=== PATIENT | male | born 1960 | race Caucasian/White ===

== ENCOUNTER 2023-02-12 00:09 | Day surgery (SDC) | payer OTHER, SELFPAY ==
[2023-02-05 15:15] VITALS: BMI 29.2
[2023-02-12 06:50] VITALS: BP 135/81; PULSE 81; RESP 16; TEMP 35.8; O2SAT 98
[2023-02-12] MEDS: LACTATED RINGERS 1,000 ML 150 ML IV CONT (06:59)
--- NOTE | 2023-02-12 07:13 | WPDANESEPPF ---
Anes - Initial Pre Proc Eval Procedure: Operation Date: 02/12/23 08:00 Proposed Procedures p Screening Colonoscopy - Bayron Hanks MD Date/Time: 02/12/23 07:13 Surgeon: Bayron Hanks MD Pre Op Diagnosis: neoplasm screening Patient Data Age: 62 Gender: M Height: 1.83 m Weight: 98.6 kg Last Vital Signs Temp 35.8 C L 02/12/23 06:50 Pulse 81 02/12/23 06:50 Resp 16 02/12/23 06:50 BP 135/81 02/12/23 06:50 Pulse Ox 98 02/12/23 06:50 O2 Del Method Room Air 02/12/23 06:50 Allergies Allergy/AdvReac Type Severity Reaction Status Date / Time No Known Allergies Allergy Verified 02/12/23 06:47 Home Medications Medication Instructions Recorded Confirmed Type pramipexole 1.5 mg tablet (Mirapex) 1.5 mg PO DAILY 02/05/23 02/12/23 History Patient hx anesthesia problems: none Family hx anesthesia problems: none Results Review: All pre-operative results and documents have been reviewed as part of the pre-operative evaluation. [facility] Past Medical History Medical History Calf pain History of colon polyps Joint pain Knee pain, left Family History Family History Father Hypertension Grandparent Family history of lung cancer Mother Family history of lung cancer, Onset Age: 68 Other No family history of cardiovascular disease No family history of diabetes mellitus No family history of malignant neoplasm Social History Social History Smoking status: Never smoker Second hand tobacco smoke exposure: No Alcohol intake: current Drinks per week: 7 Substance use: never Substance use type: does not use Living arrangements: with family Occupation/Education: occupation Gender identity (if verbalized by the patient): Male Spiritual care concerns: No Agree to blood products: Yes Anes - Eval Final PreProcedure Day of Procedure 02/12/23 07:13 Patient weight: overweight Heart: regular rate and rhythm Lungs: clear to auscultation and normal air movement Airway: Mallampati scale class II Neurological: alert and oriented Last oral intake: >/= 8 hours ASA classification: II Emergent: no Anesthetic plan: proceed Anesthesia type and monitoring: general GIVS Results Review: All pre-operative results and documents have been reviewed as part of the pre-operative evaluation. Informed Consent: The patient's anesthetic plan and its attendant risks and benefits were discussed with the patient/family/POA. Questions were solicited and answers provided to the satisfaction of the patient/family/POA.
--- NOTE | 2023-02-12 07:49 | P.HP_ITS ---
History of Present Illness History of Present Illness Consent: Risks, benefits, and alternatives have been discussed and questions answered. Patient agrees to proceed with procedure. Chief complaint: neoplasm screening Narrative: Primo Peña is a 62 year old male Presents for screening colonoscopy. Patient's current weight appetite and bowel movements are normal. Patient denies abdominal pain. He has had no bleeding. Previous colonoscopy 2018 revea led benign colon polyps. Patient presents today for neoplasia screening. Review of Systems Review of Systems: Review of systems noncontributory. [facility] Past Medical History Medical History Calf pain History of colon polyps Joint pain Knee pain, left Family History Family History Father Hypertension Grandparent Family history of lung cancer Mother Family history of lung cancer, Onset Age: 68 Other No family history of cardiovascular disease No family history of diabetes mellitus No family history of malignant neoplasm Social History Social History Smoking status: Never smoker Second hand tobacco smoke exposure: No Alcohol intake: current Drinks per week: 7 Substance use: never Substance use type: does not use Living arrangements: with family Occupation/Education: occupation Gender identity (if verbalized by the patient): Male Spiritual care concerns: No Agree to blood products: Yes Meds Home Medications and Allergies Home Medications Medication Instructions Recorded Confirmed Type pramipexole 1.5 mg tablet (Mirapex) 1.5 mg PO DAILY 02/05/23 02/12/23 History Allergies Allergy/AdvReac Type Severity Reaction Status Date / Time No Known Allergies Allergy Verified 02/12/23 06:47 Vital Signs Vital Signs - 24 hr 02/12/23 06:50 Temperature 96.5 F L Pulse Rate 81 Respiratory Rate 16 Blood Pressure 135/81 Pulse Oximetry 98 Oxygen Delivery Room Air Exam Narrative: Physical exam reveals patient to be alert. Vital signs stable. HEENT exam is unremarkable. Patient is anicteric. Lungs are clear to aus cultation and percussion. Heart is without murmur or extra sounds. Abdomen bowel sounds are present soft nontender with no hepatosplenomegaly. Digital external rectal exam is normal. Assessment and Plan Assessment and plan (1) History of colon polyps: Code(s): Z86.010 - Personal history of colonic polyps Status: Acute Assessment and Plan: Patient has a prior history of colon polyps. Most recently 2018. Plan for surveillance colonoscopy now and consider this at 5 year intervals.
[2023-02-12 08:18] VITALS: BP 116/72; PULSE 73; RESP 21; O2SAT 98
[2023-02-12 08:28] VITALS: BP 113/77; PULSE 76; RESP 21; O2SAT 98
[2023-02-12 08:38] VITALS: BP 121/79; PULSE 70; RESP 20; O2SAT 97
== END 2023-02-12 08:41 | disposition home or self-care (01) ==
PROVIDERS: PCP Family Medicine; Visit Provider Internal Medicine Gastroenterology
PROC: 0DJD8ZZ Inspection of Lower Intestinal Tract, Via Natural or Artificial Opening Endoscopic (ICD-10-PCS; CPT 45378; principal; 2023-02-12 08:00)
DX: Z12.11 Encounter for screening for malignant neoplasm of colon (principal); K64.8 Other hemorrhoids; Z86.010 Personal history of colon polyps
CPT/HCPCS: 45378; J2704; J7120

== ENCOUNTER 2023-04-25 11:24 | Emergency (ER) | payer OTHER, SELFPAY ==
--- NOTE | ~2023-04-25 | XR_ITS ---
EXAMINATION: XR hand LT min 3V DATE: 04/25/2023 13:45 INDICATION: Laceration to the dorsum of the left third digit TECHNIQUE: Posteroanterior, oblique and lateral views of the left hand were obtained. COMPARISON: Left wrist radiographs dated 07/18/2012 FINDINGS: Bone alignment is normal. No fracture. 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 Additional minimal to mild polyarticular osteoarthritis at the first carpometacarpa l and multiple interphalangeal joints. Mild soft tissue swelling at the proximal aspect of the left t hird digit. No radiopaque foreign bodies. IMPRESSION: 1. No acute osseous abnormality or radiopaque foreign bodies. Reviewed, dictated and finalized at location A.
[2023-04-25 11:25] VITALS: BP 146/75; PULSE 85; RESP 18; TEMP 36.7; O2SAT 99
--- NOTE | 2023-04-25 11:33 | PC.NURSE ---
Patient is UTD on tetanus. Patient states it has been within the last 5 years
--- NOTE | 2023-04-25 13:31 | ED.WOUNDLAC ---
HPI - Wound/Laceration General Chief Complaint: Wound/Laceration Stated Complaint: laceration left Time Seen by Provider: 04/25/23 12:51 History of Present Illness HPI narrative: 62-year-old male reports for evaluation after a laceration to the dorsum of his left third finger that occurred prior to arrival. Patient states he was using a handbag finisher and wearing his gloves, states he accidentally cut his hand with a regrinder through his glove. Bleeding controlled. Tetanus is up-to-date. Patient reports difficulty with range of motion of third finger. Denies paresthesias. No history of diabetes or vascular disease. Tetanus is up-to-date. Related Data Home Medications Medication Instructions Recorded Confirmed pramipexole 1.5 mg tablet (Mirapex) 1.5 mg PO DAILY 02/05/23 02/12/23 Allergies Allergy/AdvReac Type Severity Reaction Status Date / Time No Known Allergies Allergy Verified 04/25/23 13:40 Review of Systems Review of Systems: CONSTITUTIONAL: Denies fever, chills EYES: Denies visual changes, redness, or discharge. ENT: Denies rhinorrhea, congestion, sore throat, or otalgia. CARDIOVASCULAR: Denies chest pain, palpitations, or edema. RESPIRATORY: Denies cough or dyspnea. GASTROINTESTINAL: Denies abdominal pain, nausea, vomiting, or diarrhea. GENITOURINARY: Denies dysuria or hematuria. SKIN: See HPI MUSCULOSKELETAL: Denies back pain, joint pain, or myalgia. NEUROLOGIC: Denies headache, numbness, dizziness, or weakness. PSYCHIATRIC: Denies anxiety or depression. [facility] Past Medical History Medical History Calf pain History of colon polyps Joint pain Knee pain, left Family History Family History Father Hypertension Grandparent Family history of lung cancer Mother Family history of lung cancer, Onset Age: 68 Other No family history of cardiovascular disease No family history of diabetes mellitus No family history of malignant neoplasm Social History Social History Smoking status: Never smoker Second hand tobacco smoke exposure: No Alcohol intake: current Drinks per week: 7 Substance use: never Substance use type: does not use Living arrangements: with family Occupation/Education: occupation Gender identity (if verbalized by the patient): Male Spiritual care concerns: No Agree to blood products: Yes Exam Narrative: GENERAL: Well-appearing, in no acute distress. HEAD: Normocephalic NECK: Supple. CHEST: No respiratory distress. Clear to auscultation, no adventitious breath sounds. HEART: Regular rate and rhythm. No murmur heard. Normal peripheral pulses. EXTREMITIES: Normal range of motion. No edema. SKIN: 1.5 cm linear laceration over the dorsum of the proximal third phalanx with tunneling towards the MCP. Bleeding controlled. Tendon visualized and appears frayed towards the MCP. No foreign bodies or other deep structures appreciated. Sensation intact. Cap refill less than 2. Radial pulse 2+. Limited flexion and extension of 3rd finger. NEURO: No focal deficits. Alert and oriented x3. PSYCH: Normal mood and affect. Course Vital Signs Vital signs: Vital Signs Temperature 98.1 F 04/25/23 11:25 Pulse Rate 85 04/25/23 11:25 Respiratory Rate 18 04/25/23 11:25 Blood Pressure 146/75 H 04/25/23 11:25 Pulse Oximetry 99 04/25/23 11:25 Oxygen Delivery Room Air 04/25/23 11:25 Temperature 98.1 F 04/25/23 11:25 Pulse Rate 85 04/25/23 11:25 Respiratory Rate 18 04/25/23 11:25 Blood Pressure 146/75 H 04/25/23 11:25 Pulse Oximetry 99 04/25/23 11:25 Oxygen Delivery Room Air 04/25/23 11:25 Procedures Laceration Laceration 1: Date: 04/25/23 Time: 15:28 Site: upper extremity Side (If applicable): left
[2023-04-25] MEDS: HYDROcodone/acetaminophen (*CRX) 5-325 MG TABLET 1 TAB PO (13:41)
== END 2023-04-25 15:37 | disposition home or self-care (01) ==
PROVIDERS: Emergency Provider Physician Assistant; PCP Family Medicine
DX: S61.213A Laceration without foreign body of left middle finger without damage to nail, initial encounter (principal); S66.303A Unspecified injury of extensor muscle, fascia and tendon of left middle finger at wrist and hand level, initial encounter; Z86.010 Personal history of colon polyps; W29.8XXA Contact with other powered hand tools and household machinery, initial encounter
CPT/HCPCS: 12001; 73130; 99283; A9270

== ENCOUNTER 2024-01-22 10:12 | Outpatient (CLI) | payer OTHER, SELFPAY ==
[2024-01-22 15:04] LABS: Basophils Percent Auto 0.7 % (0.2-1.2); Eosinophils Absolute Auto 0.1 K/mm3 (0-0.3); Eosinophils Percent Auto 1.1 % (0-4.4); Hematocrit 44.8 % (42.0-52.0); Hemoglobin 14.7 g/dL (14.0-18.0); Immature Granulocyte Absolute 0.01 K/mm3 (0.00-0.031); Immature Granulocyte Percent A 0.2 % (0-0.5); Lymphocytes Absolute Auto 1.81 K/mm3 (0.9-3.2); Lymphocytes Percent Auto 32.7 % (18.3-44.2); Mean Corpuscular HGB Conc 32.8 g/dl (32-36); Mean Corpuscular Hemoglobin 30.9 pg (26-34); Mean Corpuscular Volume 94.3 fl (80-100); Mean Platelet Volume 11.5 fl (7.4-10.4); Monocytes Absolute Auto 0.3 K/mm3 (0.1-0.6); Monocytes Percent Auto 5.1 % (2.6-8.5); Neutrophils Absolute Auto 3.3 K/mm3 (1.3-6.7); Neutrophils Percent Auto 60.2 % (45.5-73.1); Platelet Count Result 162 k/mm3 (150-375); Red Blood Count 4.75 M/mm3 (4.6-6.20); Red Cell Distribution Width 12.2 % (11.5-14.5); White Blood Count 5.5 K/mm3 (4.5-10.0)
[2024-01-22 18:06] LABS: Alanine Aminotransferase 26 U/L (6-50); Albumin Level 4.3 g/dL (3.5-5.1); Alkaline Phosphatase 73 U/L (38-126); Anion Gap 3 mmol/L (8-16); Aspartate Amino Transferase 34 U/L (17-59); Bilirubin,Total 1.2 mg/dL (0.2-1.3); Blood Urea Nitrogen 28 mg/dL (9-20); Calcium 8.8 mg/dL (8.4-10.2); Carbon Dioxide 28 mmol/L (22-30); Chloride 105 mmol/L (98-107); Cholesterol 172 mg/dL (0-200); Estimated Glomerular Filt Rate > 60; Glucose 98 mg/dL (65-110); HDL Direct 52 mg/dL; Potassium 4.6 mmol/L (3.4-5.0); Sodium 136 mmol/L (137-145); Triglycerides 82 mg/dL (<150)
[2024-01-22 18:18] LABS: LDL Cholesterol Direct 102 mg/dL
[2024-01-22 18:36] LABS: Thyroid Stimulating Hormone 0.805 uIU/mL (0.465-4.680)
== END 2024-01-22 10:13 | disposition home or self-care (01) ==
LOC: ANHGOSHLAB 10:13
PROVIDERS: PCP Family Medicine; Visit Provider Family Medicine
DX: Z00.00 Encounter for general adult medical examination without abnormal findings (principal); G25.81 Restless legs syndrome; I10 Essential (primary) hypertension; Z13.220 Encounter for screening for lipoid disorders; Z13.21 Encounter for screening for nutritional disorder; Z13.29 Encounter for screening for other suspected endocrine disorder
CPT/HCPCS: 36415; 80053; 80061; 82607; 84443; 85025